=== PATIENT | male | born 1930 | race Caucasian/White ===

== ENCOUNTER 2016-10-15 17:13 | Inpatient (IN) | payer MEDICARE, OTHER ==
[~2016-10-15] VITALS: Ht 180.3 cm; Wt 115.7 kg
[~2016-10-15 17:13] MED LIST: ARICEPT DPS5 MG PO; COUMADIN2.5 MG PO; DUONEB DPS3 ML IH; FLOMAX DPS0.4 MG PO; GLUCOTROL DPS5 MG PO; ILOTYCIN1 GM OD; LASIX DPS40 MG PO; MAALOX DPS30 ML PO; NITROSTAT0.4 MG SL; SANCTURA20 MG PO; SURFAK DPS240 MG PO; TYLENOL DP650 MG/20. PO; TYLENOL DPS325 MG PO; VITAMIN B-12500 MCG PO; VITAMIN E400 UNI4 PO; VITAMIN E400 UNIT PO; ZESTRIL DPS5 MG PO; ZOCOR DPS40 MG PO; ZOLOFT DPS100 MG PO
--- NOTE | 2016-10-17 08:14 | CO ---
ADMIT: 10/15/2016 RM/LOC: 431 [facility] MR#: [id number] 2620 [facility] [address] [place] [id number] GERONIMO NUNEZ 1000 [facility] [address] [place] [address] [id number] Consultation SEX: M AGE: 86 : 1930 DATE OF CONSULTATION: 10/16/2016 ATTENDING PHYSICIAN: Shan Ram CONSULTING PHYSICIAN: Petar Wu MD, [facility] REASON FOR REFERRAL: Respiratory failure. HISTORY OF PRESENT ILLNESS: Mr. Nunez is an 86-year-old male, who is currently unresponsive. He is on BiPAP per my direction prior to my arrival to the room where his and family is present. The patient is a DNR and DNI. I was called urgently to see him for a pH of 7.18, pCO2 of 160, and PO2 of 70 on his blood gases. The patient is unable give any history at the current time. Talking to the family, he has been minimally responsive for several days. he is a DNR/DNI. He was placed on Vanco and Zosyn for sepsis protocol last night. He had an echocardiogram obtained on 05/22/2016, which showed an EF of 40% to 45%, diastolic 2 dysfunction, mild mitral regurgitation, aortic valve not well imaged. PAST MEDICAL HISTORY: Remarkable for: 1. Dementia. 2. Chronic kidney disease. 3. Diabetes. 4. Hypertension. 5. Hyperlipidemia. 6. BPH. 7. DJD. 8. History skin cancer. 9. Blindness. 10.Retinal detachment. 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 The history does not say what valve. No other history is obtainable from the patient. ALLERGIES: SULFA DRUGS. REVIEW OF SYSTEMS: Unobtainable. PHYSICAL EXAMINATION: GENERAL: The patient will partially open his eyes to voice. He is on BiPAP at the current time. VITAL SIGNS: He is afebrile. Pulse 70, respirations 16, blood pressure 173/62, O2 saturation 93%. LUNGS: Decreased with crackles on the left side. CV: Regular rate without murmurs, rubs, or gallops. ABDOMEN: Active bowel sounds. Soft, nontender. EXTREMITIES: No cyanosis or clubbing. Minimal trace edema. SKIN: Without acute lesions. NEURO: Unresponsive. ADMIT: 10/15/2016 RM/LOC: 431 [facility] MR#: [id number] [address] [address] GERONIMO NUNEZ [address] [facility] [address] [place] [id number] Consultation SEX: M AGE: 86 : 1930 IMAGING: Chest x-ray shows a dense infiltrate, left lung. I cannot visualize the prosthetic valve that has been reported. He does have previous sternotomy in the past. His EKG last night showed sinus rhythm. LABORATORY DATA: PH is 7.18, pCO2 of 160, and PO2 of 71. Previous ABGs on 05/28, showed pH of 7.36, and pCO2 at that time was 60. Sodium 143, potassium 4.1, chloride 96, CO2 of 41, creatinine 1.4. White count 9.6, hemoglobin 10.9, platelets of 219. IMPRESSION: 1. Hypercarbic respiratory failure. 2. Pneumonia. RECOMMENDATIONS AND DISCUSSION: I discussed with the family, his overall prognosis is extremely poor with his CO2. He is on BiPAP at the current time 09/03 with a minute ventilation of only 3. I would check thyroid functions on him, but I feel this is probably simply hypercarbic respiratory failure due to underlying cardiac and pulmonary disease. I would treat with the antibiotics. I would add Levaquin. We will change him to avaPs. I will honor his wishes for DNR/DNI. Thank you for the consultation. Petar Wu MD, FCCP/ modl JOB #: [id number] CC: Shan Ram, Attending Physician Shan Ram, Family Physician
--- NOTE | 2016-10-18 20:05 | CO ---
ADMIT: 10/15/2016 RM/LOC: 431 [facility] MR#: [id number] [address] [address] NUNEZ GERONIMO Keyes 9[address] [facility] [address] [place] [address] Consultation SEX: M AGE: 86 : 1930 DATE OF CONSULTATION: 10/16/2016 ATTENDING PHYSICIAN: Shan Ram MD CONSULTING PHYSICIAN: Sony Berumen MD LOCATION OF SERVICE: [facility]. REASON FOR CONSULTATION: Dr. Douglas Easley has requested our consultation for comfort cares. HISTORY OF PRESENT ILLNESS: This is an 86-year-old elderly male, who was admitted to [facility] on 10/15/2016, with weakness, altered mental status, and shortness of breath. He recently was hospitalized at a [facility] few weeks ago and transferred to [facility] facility in [place] for rehab. However, he developed confusion, weakness, and shortness of breath and was brought to the Emergency Department here at [facility] for further evaluation. He was found to be hypoxic and chest x-ray did reveal left lower lobe pneumonia as well as a left pleural effusion. Laboratory work revealed a normal white blood cell count, hemoglobin 9.9, creatinine 1.4, BNP of 4001, lactic acid was normal 0.8, and procalcitonin was normal at 0.06. IV antibiotics have been initiated along with pulmonary hygiene and diuresing with Lasix. He is a do not resuscitate/do not intubate status. However, his altered mental status continued to worsen along with his shortness of breath and this morning on 6 L of oxygen per mask ABGs were obtained revealing a pH of 7.176, pCO2 of 160, PO2 of 71, BiPAP therapy has been initiated by Dr. Wu who has been following for pulmonary needs. He continues to be lethargic. Repeat ABGs at 1025 hours today with an FiO2 of 70% revealed pH of 7.25, pCO2 of 128, and PO2 of 75.6. Family is at the bedside and continuing to direct a do not resuscitate/do not intubate status and feel that in conversation with Dr. Wu that they would not want to continue noninvasive mechanical ventilation with BiPAP and are awaiting an arrival of the last son in order to transition into care focused on comfort and a natural . Current functional status reflects a palliative performance score of 10. He is totally bed bound, unable to do any work, needing total cares, mouth care only. He does have the BiPAP mask in place right now. He is unresponsive to my verbal and tactile stimulation. Prior to admission, his functional status reflects a palliative performance score of around 50 per family report. He spent most of time in the chair. He was trying to do some rehab at [facility]. He was needing assistance with his self-care. His intake was reduced. His conscious level was confused prior to admit. There is report that he does have dementia, the level of dementia is unknown at this time to me. PAST MEDICAL HISTORY: Dementia, chronic kidney disease, diabetes, hypertension, hyperlipidemia, BPH, DJD, skin cancer, blindness, retinal detachment, valvular prosthesis which he is chronically on anticoagulation for. ADMIT: 10/15/2016 RM/LOC: 431 [facility] MR#: [id number] [address] [place] [id number] GERONIMO NUNEZ [address] [place] [phone] Consultation SEX: M AGE: 86 : 1930 ADVANCED DIRECTIVE AND CODE STATUS: He is a do not resuscitate/do not intubate status. His spouse, Lizbeth Rock, is his [id number] at . SOCIAL HISTORY: Currently he is rehabbing at the [facility]. He is . He does have 5 children involved in his care. 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 He is Zoroastrianism and family's waste removalist has visited. He is a nonsmoker and there is no report of alcohol or illicit drug use. REVIEW OF SYSTEMS: A 10-point review of system was conducted, however, due to patient's cognition I was unable to obtain. PHYSICAL EXAMINATION: CONSTITUTIONAL: Weight is 255 pounds. Please see medical record for height and BMI. GENERAL STATUS: This is a elderly male, unresponsive to me at this time with BiPAP support. VITAL SIGNS and CODE STATUS: He is a do not resuscitate/do not intubate status with temperature of 96.3, heart rate 70, respiratory rate 16, blood pressure 173/62. He is on BiPAP with an FiO2 of 70%. Oxygenating at 93%. HEENT: Head is normocephalic, atraumatic. He is not wearing glasses. Pupils are 3 mm and equally reactive, but slow. Hearing is unable to be assessed. Oral mucosa is dry. Dentition is worn. Anicteric sclerae. Conjunctivae pale. NECK: No lymphadenopathy. Trachea is midline. Supple. No JVD. He does have a thick neck. RESPIRATORY: Respirations are regular without distress. Lung sounds are shallow and diminished bilaterally. He is being assisted with BiPAP support. CARDIOVASCULAR: Rate and rhythm are regular. I do not auscultate any rubs, murmurs, clicks, or gallops. EXTREMITIES: Upper and lower extremities are free of cyanosis or clubbing. He does have 2+ edema to his bilateral upper and lower extremities. INTEGUMENTARY: Skin temperature is warm. Skin is intact. He is pale. MUSCULOSKELETAL: Free of joint deformities. He does have generalized weakness. NEUROLOGICAL: He is lethargic. He does not follow commands. He is unresponsive to my verbal and tactile stimuli. PSYCHIATRIC: Unable to be assessed. DIAGNOSTIC DATA: Laboratory work reveals the last ABG is at 1025 hours today revealed pH of 7.25, pCO2 of 128, PO2 of 75, bicarb of 55.2 on an FiO2 of 75% BiPAP. Sodium 143, potassium 4.1, chloride 96, CO2 of 41, glucose 184, creatinine 1.4, albumin 2.8. Pro-BNP 4001. INR 2.57. WBCs 9.6, hemoglobin 10.9, hematocrit 39.0, and platelets 219. Blood cultures on October 15 have been negative so far. Respiratory pathogen panel on October 16 is negative. RADIOLOGY: Reports have been reviewed. Please see EMR for details. IMPRESSION AND PLAN: 1. Physical debility. 2. Lethargy. ADMIT: 10/15/2016 RM/LOC: 431 [facility] MR#: [id number] 2620 [facility] [address] [place] [phone] GERONIMO NUNEZ 100[address] [facility] [address] [place] [address] Consultation SEX: M AGE: 86 : 1930 3. Acute hypoxic-hypercapnic respiratory failure. 4. Healthcare-associated pneumonia with sepsis. 5. Chronic kidney disease. 6. Dementia. 7. Hypertension. 8. Hyperlipidemia. 9. Degenerative joint disease. 10.Obesity. 11.Palliative care. 12.Do not resuscitate/do not intubate status. Spouse and family are at the bedside and unfortunately Mr. Nunez is unable to participate in consultation secondary to his lethargy. I did review with his spouse and family Mr. Nunez's failing health status, goals, and options of care. All verbalized understanding of failing health status and past wishes of Mr. Nunez for "no machines to keep him alive." All are aware that Mr. Nunez is at the end of his life and family has spoken with their family plasma cutting machine operator and direct care focused on comfort at this time. We reviewed end of life care and comfort care options and all verbalized understanding and direct to proceed with full comfort cares at this time. Family requests to continue BiPAP until the last son arrives, and at that time, they anticipate they will remove the BiPAP machine and allow him to pass naturally without any mechanical assistance in his breathing. All are aware of anticipated hours to days of life remaining and much support and middle school counselor given at this difficult time. Family appreciates greatly our consultation. I have written for comfort care orders and I have discussed this consultation with nursing staff. Mr. Nunez was seen in collaboration with Dr. Sony Berumen MD who agrees with assessment, discussion, and plan. I would like to thank Dr. Douglas Easley for the invitation to participate in Mr. Nunez's hospital course. Total consultation time was from 1130 hours to 1222 hours on 10/16/2016 by the Palliative Medicine BINDING BENCH WORKER. Greater than 50% of this time was spent at the bedside and middle school counselor in coordination of care. Mila Rivera APRN / Sony Berumen MD / lavernl JOB #: [id number] CC: Shan Ram MD, Attending Physician Shan Ram MD, Family Physician
--- NOTE | 2016-10-20 07:21 | ER ---
ADMIT: 10/15/2016 RM/LOC: 421 [facility] MR#: [id number] [address] [address] GERONIMO NUNEZ [facility] [place] [address] Emergency Room Report SEX: M AGE: 86 : 1930 DATE: 10/15/2016 TIME: 1713 hours. Please refer to my T-sheet for complete H and P. HISTORY OF PRESENT ILLNESS: Briefly, the patient is an 86-year-old, who has severe dementia, cardiac disease, diabetes. He has O2 dependent COPD, also is a DNR. The patient was over at the snf. Apparently, he has had 2-3 weeks of increased short of breath. They have had changed his fluid recently. They added an extra dose of Lasix and they said it has just slowly gotten worse. He is unable to give any history due to his severe dementia. PHYSICAL EXAMINATION: VITAL SIGNS: Blood pressure 167/114, pulse 69, respirations 24, temp 97.1, and sat 93% on 5 L. GENERAL: He is lethargic. HEENT: Grossly normal. LUNGS: Coarse with rales. HEART: Regular, non-tachycardic, rate 65. ABDOMEN: Soft and nontender. SKIN: He has edema in his lower extremities. Lower extremities have 2+ edema bilaterally. NEURO: He is slow. He is confused not far from baseline. He does arouse. EMERGENCY DEPARTMENT COURSE: We did the whole sepsis protocol. His chest x- ray showed left sided infiltrate and cardiomegaly. CBC was normal except hemoglobin of 10.4. Lactate was still pending. Chemistries normal except glucose of 140, creatinine 1.4. INR is 2.57. His troponin was 0.162. Blood cultures x2 were sent. EKG was sinus rhythm, rate 65, left bundle branch block. We started the antibiotics in the Emergency Department, gave the fluid ADMIT: 10/15/2016 RM/LOC: 421 [facility] MR#: [id number] [facility] [address] [address] [place] [address] Emergency Room Report SEX: M AGE: 86 : 1930 bolus per the challenge, although I am a little concerned with his congestive heart failure. I talked to Dr. Kelly and Dr. Dunn, he will be admitting him to the hospital. ASSESSMENT: 1. Pneumonia, left-sided. 2. Congestive heart failure. 3. Sepsis. 4. Hypoxemia. 5. DNR. PLAN: Admit to the hospital. Sanjeev Nieto MD/ es JOB #: [id number] CC: Shan Ram MD, Attending Physician Shan Ram MD, Family Physician
--- NOTE | 2016-10-21 14:25 | HP ---
ADMIT: 10/15/2016 RM/LOC: 421 [facility] MR#: [id number] [address] [address] [place] [address] History and Physical SEX: M AGE: 86 : 1930 DATE OF SERVICE: CHIEF COMPLAINT: Weakness, altered mental status, shortness of breath. HISTORY OF PRESENT ILLNESS: The patient does not really respond to any of my questioning. Most of the answers are coming from his and his daughters. They mentioned that patient was in the [facility] a couple of weeks ago. He was just recently placed in a custodial facility in [place] for rehab to help gain back some of his strength. However, he continued to get weaker throughout the past few days. He also became more confused and more short of breath. The patient was then brought into the ER and was admitted for his shortness of breath. He was hypoxic when he arrived requiring increasing oxygen needs. Chest x-ray showed a left lower lung pneumonia, some small left pleural effusions and some cardiomegaly. Other workup by the ER showed a normal white blood cell count, a low hemoglobin of 9.9. BMP, sodium 146, potassium 4, chloride 100, CO2 41, BUN 21, creatinine 1.4, blood sugar 149. His PT, PTT was 27.5 and 2.57. BNP was 4001. Blood cultures are pending. Lactic acid was normal at 0.8. Troponin was slightly elevated at 0.16. Procalcitonin is normal at 0.06. The patient's family mentions that he is often admitted for similar symptoms and has been progressively getting more often over the last few years. They would like patient to be DNR/DNI as patient stated the fact that he would not want any resuscitation to be done. PAST MEDICAL HISTORY: Significant for dementia, chronic kidney disease, diabetes, hypertension, hyperlipidemia, BPH, DJD, history of skin cancer, blindness, and retinal detachment. He also has a valvular prosthesis which is chronically anticoagulated for. CURRENT MEDICATIONS: Include: 1. Donepezil for memory. 2. Erythromycin for his eyes. 3. Glipizide for diabetes. 4. Lisinopril for blood pressure. 5. Nifedipine for heart, congestive heart failure, blood pressure. 6. Prednisone taper. 7. He was discharged out on sertraline for depression. 8. Simvastatin for cholesterol. 9. Tamsulosin for BPH. 10.Trospium for his bladder. 11.Warfarin for his anticoagulation. 12.Advair and Atrovent inhalers. FAMILY HISTORY: Noncontributory. SOCIAL HISTORY: The patient is a nonsmoker. Does not drink alcohol. Does not use any illicit drugs. He is . Previously lived with his but however currently just recently was placed in a custodial facility for rehab. ADMIT: 10/15/2016 RM/LOC: 421 [facility] MR#: [id number] [address] [address] [place] [address] History and Physical SEX: M AGE: 86 : 1930 REVIEW OF SYSTEMS: Dyspnea as mentioned above. Altered mental status as well. No notable fevers, chills, sweats, nausea, vomiting, diarrhea, constipation, bleeding, or dysuria over the last few days. No skin changes or signs of infection. PHYSICAL EXAMINATION: VITAL SIGNS: Temp is 97.5, 71 for pulse, 24 respiratory rate, blood pressure is 171/76, SpO2 91%. GENERAL: He is agitated. He is not able to get comfy. He has chronic back pain and often continues to move to get more comfortable. He is, however, not agitated towards anyone specifically. HEART: Regular rate and rhythm. No murmurs appreciated this time. LUNGS: Decreased breath sounds on the left. No wheezing. ABDOMEN: Soft, positive bowel sounds. Nontender. EXTREMITIES: Showed 1+ edema bilaterally. NEURO: Cranial nerves II through XII are grossly intact. 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 The patient is obese and does have a thick neck, so it was unable to determine if he has JVD at this time as far as assessing for CHF. Labs as mentioned before. ASSESSMENT AND PLAN: We will admit him to PCU status tele as he is meeting sepsis criteria. We will not give him any IV fluids as there is some concern for congestive heart failure at this time. We will give him IV antibiotics and nebulized treatments as well as continue his home medications and monitor the patient. Impression is HCAP pneumonia versus congestive heart failure and other comorbidities including valvular heart disease, diabetes, hypertension. We will trend his enzymes, manage his glucose, repeat CBC, BMP, CK-MB, troponin in the morning. Chest x-ray in the morning. Start him on some IV steroids at this time. The patient is stable at this time. The patient is DNR/DNI per family wishes. This is a personal patient of Dr. Ram. Elza Bright MD Resident / Shan Ram MD / es JOB #: [id number] CC: Shan Ram, Attending Physician Shan Ram, Family Physician
--- NOTE | 2016-11-01 13:58 | DS ---
ADMIT: 10/15/2016 RM/LOC: 431 [facility] MR#: [id number] 2620 [facility] [address] [place] [id number] GERONIMO NUNEZ [place] [address] [place] [address] General Discharge Summary SEX: M AGE: 86 : 1930 ADMISSION DATE: 10/15/2016 DISCHARGE DATE: 10/16/2016 CONSULTS: 1. Pulmonology. 2. Supportive/Palliative Care. FINAL DIAGNOSES: 1. Acute respiratory failure with hypoxia secondary to healthcare-associated pneumonia requiring BiPAP and AVAPS. 2. Chronic kidney disease. 3. Hypertension. 4. Diabetes type 2. 5. Altered mental status. 6. Dementia. 7. Mechanical heart valve. 8. Sepsis. 9. Hypercapnia. CODE STATUS: DNR and DNI/comfort cares. HOSPITAL COURSE: The patient presented to the ER with shortness of breath and altered mental status. He was requiring BiPAP at that time when he presented to the ER. ABG was done in the ER and showed a pH of 7.25, pCO2 of 128, PO2 of 75.6, and he was using an FiO2 of 70%.The patient had been started on vanc, Zosyn, and Levaquin to help treat the pneumonia. Throughout the hospital stay, the patient continued to have decreased level of consciousness and was altered. He also continued to have hypoxia, requiring the BiPAP and then eventually being switched to AVAPS. Ultimately, the family decided that it would be best if the patient was placed on comfort cares. The patient then on the afternoon of 10/16/2016. Elza Bright MD Resident / Shan Ram MD / es JOB #: [id number] CC: Shan Ram MD, Attending Physician Shan Ram MD, Family Physician
== END 2016-10-16 15:10 | disposition expired | DRG 871 ==
LOC: ER 17:13 → 4PCU 19:30
PROVIDERS: ADMIT Family Medicine
DX: A41.9 Sepsis, unspecified organism (principal); J18.9 Pneumonia, unspecified organism; Z51.5 Encounter for palliative care; J96.01 Acute respiratory failure with hypoxia; I13.0 Hypertensive heart and chronic kidney disease with heart failure and stage 1 through stage 4 chronic kidney disease, or unspecified chronic kidney disease; J96.02 Acute respiratory failure with hypercapnia; J44.0 Chronic obstructive pulmonary disease with (acute) lower respiratory infection; I50.9 Heart failure, unspecified; E11.22 Type 2 diabetes mellitus with diabetic chronic kidney disease; F03.90 Unspecified dementia, unspecified severity, without behavioral disturbance, psychotic disturbance, mood disturbance, and anxiety; I25.10 Atherosclerotic heart disease of native coronary artery without angina pectoris; E11.9 Type 2 diabetes mellitus without complications; J44.9 Chronic obstructive pulmonary disease, unspecified; Z99.81 Dependence on supplemental oxygen; Z66 Do not resuscitate; R09.02 Hypoxemia; I51.7 Cardiomegaly; N18.9 Chronic kidney disease, unspecified; E78.5 Hyperlipidemia, unspecified; N40.0 Benign prostatic hyperplasia without lower urinary tract symptoms; M19.90 Unspecified osteoarthritis, unspecified site; H54.0 Blindness, both eyes; M54.9 Dorsalgia, unspecified; G89.29 Other chronic pain; E66.9 Obesity, unspecified; Z95.2 Presence of prosthetic heart valve; Z85.828 Personal history of other malignant neoplasm of skin; Z79.01 Long term (current) use of anticoagulants; Z68.36 Body mass index [BMI] 36.0-36.9, adult